=== PATIENT | female | born 1975 | race Two or more races ===

== ENCOUNTER 2017-12-14 19:10 | Emergency (ER) | payer OTHER | END 2017-12-14 20:01 | disposition home or self-care (01) | LOC: ER 19:10 | DX: L25.9 Unspecified contact dermatitis, unspecified cause (principal); T78.40XA Allergy, unspecified, initial encounter | CPT/HCPCS: 99283 ==

== ENCOUNTER 2019-09-22 16:52 | Emergency (ER) | payer OTHER ==
[~2019-09-22] VITALS: Ht 165.1 cm; Wt 79.0 kg
[~2019-09-22 16:52] MED LIST: CEPH500C PO; HYDR25TA PO
[2019-09-22] MEDS ORDERED: LIDO:MAALOX 1:1 20 ML SINGLE DOSE. SWSW ONE (17:30)
[2019-09-22 18:07] LABS: BASO % 1 % (0-3); EOS # 0.2 x10^3/uL (0.0-0.7); EOS % 2 % (0-3); HEMATOCRIT 38.1 % (36.0-47.0); HEMOGLOBIN 12.7 g/dL (12.0-15.5); LYMPH % 36 % (24-48); MEAN CORPUSCULAR HEMOGLOBIN 25 pg (25-35); MEAN CORPUSCULAR HGB CONC 33 g/dL (31-37); MEAN CORPUSCULAR VOLUME 76 fL (79-100); MONO # 0.5 x10^3/uL (0.0-1.1); MONO % 6 % (0-9); NEUT # 4.6 x10^3/uL (1.8-7.7); NEUT % 56 % (31-73); PLATELET COUNT 248 x10^3/uL (140-400); RED BLOOD COUNT 5.02 x10^6/uL (3.50-5.40); RED CELL DISTRIBUTION WIDTH 14.5 % (11.5-14.5); WHITE BLOOD COUNT 8.2 x10^3/uL (4.0-11.0)
[2019-09-22 18:15] LABS: PROTHROMBIN TIME PATIENT 11.4 SEC (11.7-14.0)
[2019-09-22 18:15] LABS: BARBITURATES NEG (NEG); BENZODIAZEPINES NEG (NEG); BILIRUBIN,URINE NEGATIVE (NEG); CANNABINOIDS NEG (NEG); CLARITY,URINE CLEAR; COCAINE NEG (NEG); COLOR,URINE YELLOW; METHADONE NEG (NEG); NITRITE,URINE NEGATIVE (NEG); OPIATES NEG (NEG); PH,URINE 6.5; PHENCYCLIDINE NEG (NEG); PROTEIN,URINE NEGATIVE (NEG-TRACE); UROBILINOGEN,URINE 0.2 mg/dL (0.2 mg/dL)
[2019-09-22 18:19] LABS: CALCIUM 8.8 mg/dL (8.5-10.1); CREATININE 0.8 mg/dL (0.6-1.0); GFR 77.6; POTASSIUM 3.5 mmol/L (3.5-5.1)
[2019-09-22 18:23] LABS: ALBUMIN 3.8 g/dL (3.4-5.0); ALBUMIN/GLOBULIN RATIO 0.9 (1.0-1.7); MAGNESIUM 2.1 mg/dL (1.8-2.4); TOTAL BILIRUBIN 0.2 mg/dL (0.2-1.0); TOTAL PROTEIN 7.9 g/dL (6.4-8.2)
[2019-09-22 18:23] LABS: RBC,URINE 0 /HPF (0-2)
[2019-09-22 18:24] LABS: BACTERIA,URINE MANY /HPF (0-FEW); SQUAMOUS EPITHELIAL CELL,UR MANY /LPF
[2019-09-22 18:26] LABS: AMPHETAMINE/METHAMPHETAMINE NEG (NEG)
[2019-09-22 18:34] LABS: CREATINE KINASE 88 U/L (26-192)
--- NOTE | 2019-09-22 19:10 | PHYS DOC ---
Past Medical History Past Medical History: No Pertinent History Past Surgical History: Appendectomy Alcohol Use: None Drug Use: None Adult General Chief Complaint Chief Complaint: ABDOMINAL PAIN HPI HPI Patient is a 44 year old female who presents to the ED today complaining of epigastric abdominal pain rated as mild worse on eating certain foods that began months ago, patient reports she has been seen at [facility] and worked up for this pain and they could not find any acute cause. Patient is Icelandic speaking and interpretation is provided by family Review of Systems Review of Systems Constitutional: Denies fever or chills [] Eyes: Denies change in visual acuity, redness, or eye pain [] HENT: Denies nasal congestion or sore throat [] Respiratory: Denies cough or shortness of breath [] Cardiovascular: No additional information not addressed in HPI [] GI: Reports epigastric abdominal pain, denies nausea, vomiting, bloody stools or diarrhea [] : Denies dysuria or hematuria [] Musculoskeletal: Denies back pain or joint pain [] Integument: Denies rash or skin lesions [] Neurologic: Denies headache, focal weakness or sensory changes [] All other systems were reviewed and found to be within normal limits, except as documented in this note. Current Medications Current Medications Current Medications Medications (Trade) Dose Ordered Sig/Thelma Start Time Stop Time Status Last Admin Dose Admin Multi-Ingredient Mouthwash/Gargle (Gi Cocktail) 20 ml 1X ONCE 09/22/19 17:30 09/22/19 17:31 DC 09/22/19 17:40 20 ML Allergies Allergies Allergies Coded Allergies Type Severity Reaction Last Updated Verified No Known Drug Allergies 12/26/14 No Physical Exam Physical Exam Constitutional: Well developed, well nourished, no acute distress, non-toxic appearance. [] HENT: Normocephalic, atraumatic, bilateral external ears normal, oropharynx moist, no oral exudates, nose normal. [] Eyes: PERRLA, EOMI, conjunctiva normal, no discharge. [] Neck: Normal range of motion, no tenderness, supple, no stridor. [] Cardiovascular:Heart rate regular rhythm, no murmur [] Lungs & Thorax: Bilateral breath sounds clear to auscultation [] Abdomen: Bowel sounds normal, soft, slight tenderness of the epigastric region, slight right upper quadrant tenderness with negative Hidalgo sign, no right lower quadrant or left lower quadrant tenderness, no masses, no pulsatile masses. [] Skin: Warm, dry, no erythema, no rash. [] Back: No tenderness, no CVA tenderness. [] Extremities: No tenderness, no cyanosis, no clubbing, ROM intact, no edema. [] Neurologic: Alert and oriented X 3, normal motor function, normal sensory function, no focal deficits noted. [] Psychologic: Affect normal, judgement normal, mood normal. [] Current Patient Data Lab Values Laboratory Tests Test 09/22/19 17:40 09/22/19 17:55 09/22/19 17:57 Urine Collection Type Unknown Urine Color Yellow Urine Clarity Clear Urine pH 6.5 Urine Specific [place] <=1.005 Urine Protein Negative mg/dL (NEG-TRACE) Urine Glucose (UA) Negative mg/dL (NEG) Urine Ketones (Stick) Negative mg/dL (NEG) Urine Blood Negative (NEG) Urine Nitrite Negative (NEG) Urine Bilirubin Negative (NEG) Urine Urobilinogen Dipstick 0.2 mg/dL (0.2 mg/dL) Urine Leukocyte Esterase Trace (NEG) Urine RBC 0 /HPF (0-2) Urine WBC 1-4 /HPF (0-4) Urine Squamous Epithelial Cells Many /LPF Urine Bacteria Many /HPF (0-FEW) Urine Opiates Screen Neg (NEG) Urine Methadone Screen Neg (NEG) Urine Barbiturates Neg (NEG) Urine Phencyclidine Screen Neg (NEG) Urine Amphetamine/Methamphetamine Neg (NEG) Urine Benzodiazepines Screen Neg (NEG) Urine Cocaine Screen Neg (NEG) Urine Cannabinoids Screen Neg (NEG) Urine Ethyl Alcohol Neg (NEG) POC Urine HCG, Qualitative Hcg negative (Negative) White Blood Count 8.2 x10^3/uL (4.0-11.0) Red Blood Count 5.02 x10^6/uL (3.50-5.40) Hemoglobin 12.7 g/dL (12.0-15.5) Hematocrit 38.1 % (36.0-47.0) Mean Corpuscular Volume 76 fL (79-100) L Mean Corpuscular Hemoglobin 25 pg (25-35) Mean Corpuscular Hemoglobin Concent 33 g/dL (31-37) Red Cell Distribution Width 14.5 % (11.5-14.5) Platelet Count 248 x10^3/uL (140-400) Neutrophils (%) (Auto) 56 % (31-73) Lymphocytes (%) (Auto) 36 % (24-48) Monocytes (%) (Auto) 6 % (0-9) Eosinophils (%) (Auto) 2 % (0-3) Basophils (%) (Auto) 1 % (0-3) Neutrophils # (Auto) 4.6 x10^3/uL (1.8-7.7) Lymphocytes # (Auto) 3.0 x10^3/uL (1.0-4.8) Monocytes # (Auto) 0.5 x10^3/uL (0.0-1.1) Eosinophils # (Auto) 0.2 x10^3/uL (0.0-0.7) Basophils # (Auto) 0.0 x10^3/uL (0.0-0.2) Prothrombin Time 11.4 SEC (11.7-14.0) L Prothrombin Time INR 0.9 (0.8-1.1) Sodium Level 143 mmol/L (136-145) Potassium Level 3.5 mmol/L (3.5-5.1) Chloride Level 106 mmol/L (98-107) Carbon Dioxide Level 25 mmol/L (21-32) Anion Gap 12 (6-14) Blood Urea Nitrogen 11 mg/dL (7-20) Creatinine 0.8 mg/dL (0.6-1.0) Estimated GFR (Cockcroft-Gault) 77.6 BUN/Creatinine Ratio 14 (6-20) Glucose Level 117 mg/dL (70-99) H Calcium Level 8.8 mg/dL (8.5-10.1) Magnesium Level 2.1 mg/dL (1.8-2.4) Total Bilirubin 0.2 mg/dL (0.2-1.0) Aspartate Amino Transferase (AST) 11 U/L (15-37) L Alanine Aminotransferase (ALT) 18 U/L (14-59) Alkaline Phosphatase 79 U/L (46-116) Creatine Kinase 88 U/L (26-192) Creatine Kinase MB (Mass) < 0.5 ng/mL (0.0-3.6) Creatine Kinase MB Relative Index % (0-4) Troponin I Quantitative < 0.017 ng/mL (0.000-0.055) HI-Dpr-S-Type Natriuretic Peptide 34 pg/mL (0-124) Total Protein 7.9 g/dL (6.4-8.2) Albumin 3.8 g/dL (3.4-5.0) Albumin/Globulin Ratio 0.9 (1.0-1.7) L Lipase 242 U/L (73-393) Thyroid Stimulating Hormone (TSH) 7.137 uIU/mL (0.358-3.74) H Laboratory Tests 09/22/19 17:57 Laboratory Tests 09/22/19 17:57 EKG EKG [] Radiology/Procedures Radiology/Procedures [] Course & Med Decision Making Course & Med Decision Making Pertinent Labs and Imaging studies reviewed. (See chart for details) This is a 44-year-old female patient presenting to the ED today with epigastric abdominal pain, symptoms have been going on for months. CBC, CMP-no acute findings. Urine analysis is negative for any acute findings. Preliminary ultrasound noted for gallstones, sludge, debilitated, bile duct- cholelithiasis nor cholecystitis Patient was discharged to home. Provided general surgeon for follow-up. Dragon Disclaimer Dragon Disclaimer This electronic medical record was generated, in whole or in part, using a voice recognition dictation system. Departure Departure Impression: Primary Impression: Cholelithiasis Disposition: 01 HOME, SELF-CARE Condition: STABLE Referrals: RO CARBALLO MD (PCP) VERONIKA LOPEZ MD follow up in 2 weeks Patient Instructions: Cholelithiasis Additional Instructions: You were evaluated in the emergency room and noted to have gallstones, please avoid eating greasy fatty foods, avoid eating spicy foods. Please follow-up with the provided general surgeon in the next 2 weeks. Problem Qualifiers Primary Impression: Cholelithiasis Cholelithiasis location: gallbladder Cholecystitis presence: without cholecystitis Biliary obstruction: without biliary obstruction Qualified Codes: K80.20 - Calculus of gallbladder without cholecystitis without obstruction JUSTINA DAVIS REHAB SPECIALIST Sep 22, 2019 19:10
[2019-09-22 19:21] VITALS: BP 150/88
--- NOTE | 2019-09-22 19:36 | RAD ---
EXAM: RIGHT UPPER QUADRANT ULTRASOUND. HISTORY: Epigastric pain. COMPARISON: None. FINDINGS: Sonographic evaluation of the right upper quadrant was performed. At least mild diffuse hepatic steatosis is suspected. There are no focal lesions. The gallbladder is contracted but otherwise unremarkable. There is no sonographic Hidalgo sign. The common duct measures 3 mm. The visualized portions of the head and body of the pancreas reveal no abnormality. The right kidney measures 9.2 cm. Cortical thickness and echogenicity are preserved. There is no hydronephrosis. The visualized portions of the abdominal aorta and inferior vena cava are grossly patent and normal in caliber. IMPRESSION: 1. Suspect diffuse hepatic steatosis. No cause for acute pain is identified. Electronically signed by: María Elena Casiano MD (09/22/2019 7:33 PM) JUVENAL
--- NOTE | 2019-09-23 15:02 | EKG ---
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
== END 2019-09-22 19:30 | disposition home or self-care (01) ==
LOC: ER 16:52
DX: K80.20 Calculus of gallbladder without cholecystitis without obstruction (principal); Z90.89 Acquired absence of other organs
CPT/HCPCS: 36415; 76705; 80053; 80307; 81001; 81025; 82553; 83690; 83735; 83880; 84443; 84484; 85025; 85610; 93005; 99285-25

== ENCOUNTER 2019-10-15 17:13 | Emergency (ER) | payer OTHER ==
[~2019-10-15] VITALS: Ht 152.4 cm; Wt 79.0 kg
[2019-10-15 17:18] VITALS: BP 158/91
--- NOTE | 2019-10-15 17:44 | PHYS DOC ---
Past Medical History Past Medical History: Hypertension (ROSS ESCAMILLA APRN) Past Surgical History: Appendectomy (ROSS ESCAMILLA APRN) Smoking Status: Current Every Day Smoker Additional Information: PT USES CHEWING TOBACCO Alcohol Use: None Drug Use: None (ROSS ESCAMILLA APRN) Attending Signature I have participated in the care of this patient and I have reviewed and agree with all pertinent clinical information above including history, exam, and recommendations. (MIKAYLA CLAROS MD) Adult General Chief Complaint Chief Complaint: SORE THROAT HPI HPI Patient is a 44 year old female, accompanied by her spouse, who presents to emergency department with complaints of a sore throat, nasal congestion, cough, fever, body aches, and fatigue for the last 3 days. Patient denies any shortness of breath, nausea, vomiting, diarrhea, or abdominal pain. She states that both her ears hurt and feel full. She states that she took some ibuprofen around 1500 today for control of fever. The patient's translated for the patient as she does not speak Vietnamese. (ROSS ESCAMILLA APRN) Review of Systems Review of Systems All other systems were reviewed and found to be within normal limits, except as documented in this note. (ROSS ESCAMILLA APRN) Current Medications Current Medications Current Medications Medications (Trade) Dose Ordered Sig/Thelma Start Time Stop Time Status Last Admin Dose Admin Acetaminophen (Tylenol) 1,000 mg 1X ONCE 10/15/19 17:45 10/15/19 17:50 DC 10/15/19 17:54 1,000 MG (MIKAYLA CLAROS MD) Allergies Allergies Allergies Coded Allergies Type Severity Reaction Last Updated Verified No Known Drug Allergies 12/26/14 No (MIKAYLA CLAROS MD) Physical Exam Physical Exam Constitutional: Well developed, well nourished, no acute distress, ill appearance HENT: Normocephalic, atraumatic, bilateral external ears normal, bilateral TMs normal, posterior pharynx erythemic with 2+ tonsils bilaterally, oropharynx moist, nose congested with erythema and edema of the nasal turbinates bilaterally Eyes: PERRLA, conjunctiva injected bilaterally, no discharge. [] Neck: Normal range of motion, bilateral anterior chain lymph node enlargement and tenderness, no stridor. [] Cardiovascular:Heart rate regular rhythm, no murmur [] Lungs & Thorax: Bilateral breath sounds clear to auscultation, Respirations even and unlabored, no retractions, no respiratory distress Skin: Flushed, hot, dry, no rash. [] Back: No tenderness Extremities: No cyanosis, ROM intact Neurologic: Alert and oriented X 3, no focal deficits noted. [] Psychologic: Affect normal, judgement normal, mood normal. (ROSS ESCAMILLA APRN) Current Patient Data Vital Signs Vital Signs Date Time Temp Pulse Resp B/P (MAP) Pulse Ox O2 Delivery O2 Flow Rate FiO2 10/15/19 17:18 101.2 16 158/91 (113) 97 Room Air 101.2 (MIKAYLA CLAROS MD) EKG EKG [] (ROSS ESCAMILLA APRN) Radiology/Procedures Radiology/Procedures [] (ROSS ESCAMILLA APRN) Course & Med Decision Making Course & Med Decision Making Pertinent Labs and Imaging studies reviewed. (See chart for details) [] (ROSS ESCAMILLA APRN) Dragon Disclaimer Dragon Disclaimer This electronic medical record was generated, in whole or in part, using a voice recognition dictation system. (ROSS ESCAMILLA APRN) Departure Departure Impression: Primary Impression: Acute streptococcal pharyngitis Additional Impression: Flu-like symptoms Disposition: 01 HOME, SELF-CARE Condition: STABLE Referrals: RO CARBALLO MD (PCP) Patient Instructions: Influenza, Adult, [id number], Strep Throat, [id number] Additional Instructions: Fill prescription and use as directed. Recommend warm salt water gargles as needed for relief of discomfort. Alternate Tylenol and ibuprofen as needed for fever/pain. Discard your toothbrush tomorrow and begin using a new toothbrush. Increase clear fluids and rest. Diet as tolerated. Recommend use of [id number] flu medications as needed for relief of your symptoms. Follow- up with primary care doctor if symptoms persist. Return to the ER if symptoms worsen. Scripts Amoxicillin (AMOXICILLIN) 875 Mg Tablet 1 TAB PO BID for 10 Days, #20 TAB 0 Refills Prov: ROSS ESCAMILLA APRN 10/15/19 Problem Qualifiers ROSS ESCAMILLA APRN Oct 15, 2019 17:44 MIKAYLA CLAROS MD Oct 15, 2019 20:04
[2019-10-15] MEDS ORDERED: ACETAMINOPHEN 500 MG TABLET PO ONE (17:45)
[2019-10-15] MEDS ORDERED: AMOX875T PO (18:09)
== END 2019-10-15 18:23 | disposition home or self-care (01) ==
LOC: ER 17:13
DX: J02.0 Streptococcal pharyngitis (principal); B95.0 Streptococcus, group A, as the cause of diseases classified elsewhere; R05 Cough; R50.9 Fever, unspecified; M79.10 Myalgia, unspecified site; R53.83 Other fatigue; I10 Essential (primary) hypertension; F17.220 Nicotine dependence, chewing tobacco, uncomplicated
CPT/HCPCS: 87880; 99283